=== PATIENT | male | born 1940 | race Caucasian/White ===

== ENCOUNTER 2017-09-28 04:01 | Inpatient (IN) | payer MEDICARE, MEDICAID ==
[~2017-09-28] VITALS: Ht 167.6 cm; Wt 50.0 kg
[~2017-09-28 04:01] MED LIST: ADVAIR DISKU; ATOR-2 PO; CARCD120C PO; CARV6.253 PO; CIPR-173 PO; FLUO20CA39 PO; FURO-150 PO; PANT40TA4 PO; VENTOLIN HFA AER
[2017-09-28] MEDS ORDERED: albuterol 2.5 MG/3 ML nebule CONTNEB PRN (04:15)
[2017-09-28] MEDS ORDERED: methylPREDNISolone sod succ 125mg/2ml vial IV ONE (04:15)
[2017-09-28 04:59] LABS: INR 1.2 INR; PARTIAL THROMBOPLASTIN TIME 31 SECONDS (22-32)
[2017-09-28 05:26] LABS: ABG HCO3 30.3 mmol/L (22.0-26.0); ABG OXYGEN SATURATION 73.1 % (95-98); ABG PCO2 (T) 47.8 mmHg (35.0-48.0); ABG PH (T) 7.417 (7.350-7.450); ABG PO2 (T) 38.8 mmHg (83-108); ALLEN'S TEST Positive; FLOW 4 L/min; FMetHb 0.1 % (0.3-1.12); FO2Hb 72.3 % (94-100); PATIENT TEMPERATURE 36.5; TOTAL HEMOGLOBIN 9.5 G/dl (14.0-18.0)
[2017-09-28 05:43] LABS: ALANINE AMINOTRANSFERASE 22 U/L (12-78); ALBUMIN/GLOBULIN RATIO 0.7 (1.1-1.5); ALKALINE PHOSPHATASE 138 IU/L (46-116); ANION GAP 9 (8-16); ASPARTATE AMINO TRANSFERASE 30 U/L (10-37); BILIRUBIN,TOTAL 0.7 MG/DL (0.1-1.0); BLOOD UREA NITROGEN 14 MG/DL (7-18); BUN/CREATININE RATIO 12.3 (5.4-32.0); CALCIUM 8.7 MG/DL (8.5-10.1); CHLORIDE 105 MMOL/L (99-107); CREATININE 1.14 MG/DL (0.60-1.10); GLUCOSE 120 MG/DL (70-104); MAGNESIUM 1.8 MG/DL (1.5-2.4); PHOSPHORUS 3.6 MG/DL (2.3-4.5); POTASSIUM 4.4 MMOL/L (3.5-5.1); SODIUM 143 MMOL/L (135-145); TOTAL CARBON DIOXIDE 29.4 MMOL/L (24-32); TOTAL PROTEIN 7.6 G/DL (6.4-8.2); eGFR 62 ML/MIN
[2017-09-28] MEDS ORDERED: APIX5TAB3 PO (05:47)
[2017-09-28 05:48] LABS: BASOPHILS % (AUTO) 0.4 % (0-1); EOSINOPHILS # (AUTO) 0.2 X10'3 (0-0.9); EOSINOPHILS % (AUTO) 2.4 % (0-6); HEMATOCRIT 27.1 % (42.0-52.0); HEMOGLOBIN 8.9 g/dl (14.0-17.9); MEAN CORPUSCULAR HEMOGLOBIN 28.3 PG (27.0-31.0); MEAN CORPUSCULAR HGB CONC 32.8 % (33.0-36.5); MEAN CORPUSCULAR VOLUME 86.1 FL (78-98); MEAN PLATELET VOLUME 11.5 FL (7.4-10.4); MONOCYTES # (AUTO) 0.4 X10'3 (0-0.9); NEUTROPHILS # (AUTO) 6.1 X10'3 (1.8-7.7); NEUTROPHILS % (AUTO) 79.2 % (42-75); PLATELET COUNT 181 X10'3 (140-440); RED BLOOD COUNT 3.14 X10'6 (4.70-6.10); WHITE BLOOD COUNT 7.6 X10'3 (4.5-11.0)
[2017-09-28 07:04] LABS: LARGE PLATELETS FEW; PLATELET ESTIMATE NORMAL
[2017-09-28 07:05] LABS: ANISOCYTOSIS 3+; MICROCYTOSIS 1+; POIKILOCYTOSIS FEW; POLYCHROMASIA FEW; TARGET CELLS FEW
[2017-09-28] MEDS ORDERED: furosemide 10 MG/1 ML 10ml inj IV ONE (08:10)
[2017-09-28] MEDS ORDERED: diltiazem 5mg/ml 5ml inj. IV ONE (08:10)
[2017-09-28] MEDS ORDERED: ondansetron/PF 4mg/2ml inj IV PRN (08:20)
[2017-09-28] MEDS ORDERED: morphine 4 MG/ML inj SYRINge IV PRN ×2 (08:20)
[2017-09-28] MEDS ORDERED: mag hydrox/Alum hydrox/simeth 30ml oral suspension PO PRN (08:20)
[2017-09-28] MEDS ORDERED: potassium Cl 40MEQ/NS 500ml 500 ML IV PRN ×2 (08:20)
[2017-09-28] MEDS ORDERED: magnesium hydroxide 30ml (MOM) UD suspension PO PRN (08:20)
[2017-09-28] MEDS ORDERED: bisacodyl 10mg suppository rectal RC PRN (08:20)
[2017-09-28] MEDS ORDERED: magnesium Cl slow-release 64mg tablet PO PRN (08:20)
[2017-09-28] MEDS ORDERED: acetaminophen 325mg tablet PO PRN (08:20)
[2017-09-28] MEDS ORDERED: magnesium 2GM in 50ml NS 50 ML IV PRN (08:20)
[2017-09-28] MEDS ORDERED: magnesium 4gm in 100ml NS 100 ML IV PRN (08:20)
[2017-09-28] MEDS ORDERED: potassium Cl 20 mEq SR tablet PO PRN ×2 (08:20)
[2017-09-28] MEDS: levoFLOXACIN-Levaquin 500mg/D5 100 ML IV SCH (08:59)
[2017-09-28] MEDS: diltiazem-D5W 125mg/125ml 125 ML IV PRN (09:13)
[2017-09-28] MEDS: ipratropium/albuterol 3ml nebule NEB SCH ×4 (11:36→23:04)
[2017-09-28 12:05] LABS: ABG BASE EXCESS 6.9 mmol/L (-2.0-3.0); ABG HCO3 31.6 mmol/L (22.0-26.0); ABG OXYGEN SATURATION 90.2 % (95-98); ABG PCO2 (T) 45.7 mmHg (35.0-48.0); ABG PH (T) 7.457 (7.350-7.450); ABG PO2 (T) 60.5 mmHg (83-108); ALLEN'S TEST Positive; FCOHb 0.9 % (0.5-1.5); FO2Hb 89.4 % (94-100); MINUTE VOLUME 17 L/min; RESPIRATORY RATE 18 b/min; RESPIRATORY RATE (OBSERVED) 20 b/min; TIDAL VOLUME 715 mL; TOTAL HEMOGLOBIN 9.8 G/dl (14.0-18.0)
[2017-09-28] MEDS: methylPREDNISolone sod succ 125mg/2ml vial IV SCH ×2 (16:11→20:04)
[2017-09-28 17:00] VITALS: BP 120/51
[2017-09-28 18:00] VITALS: BP 136/80
[2017-09-28 20:00] VITALS: BP 117/61
[2017-09-28] MEDS: atorvastatin 20mg tablet PO SCH (20:05)
[2017-09-28] MEDS: furosemide 20 MG/2 ML vial IV SCH (20:05)
[2017-09-28] MEDS: lactobacillus rhamnosus 10,000 MMU CELLS/CAPSULE PO SCH (20:06)
[2017-09-28] MEDS: docusate sod 100mg capsule PO SCH (20:07)
[2017-09-28] MEDS: carvedilol 6.25mg tablet PO SCH (20:07)
[2017-09-28] MEDS: apixaban 5mg tablet PO SCH (20:07)
[2017-09-28] MEDS ORDERED: ALPRAZolam 0.25mg tablet PO PRN (20:40)
[2017-09-28] MEDS ORDERED: diltiazem-D5W 125mg/125ml 125 ML IV ONE (21:56)
[2017-09-28 22:00] VITALS: BP 111/62
[2017-09-29] VITALS (9 sets, daily range): BP systolic 97–128; BP diastolic 55–100
[2017-09-29] MEDS: methylPREDNISolone sod succ 125mg/2ml vial IV SCH ×3 (02:22→16:10)
[2017-09-29] MEDS: ipratropium/albuterol 3ml nebule NEB SCH ×6 (03:00→23:00)
[2017-09-29 05:14] LABS: BASOPHILS % (AUTO) 0.3 % (0-1); EOSINOPHILS # (AUTO) 0.1 X10'3 (0-0.9); EOSINOPHILS % (AUTO) 0.8 % (0-6); HEMOGLOBIN 8.9 g/dl (14.0-17.9); LYMPHOCYTES # (AUTO) 0.7 X10'3 (1.1-4.8); LYMPHOCYTES % (AUTO) 8.2 % (21-51); MEAN CORPUSCULAR HEMOGLOBIN 28.5 PG (27.0-31.0); MEAN CORPUSCULAR HGB CONC 32.9 % (33.0-36.5); MEAN CORPUSCULAR VOLUME 86.8 FL (78-98); MEAN PLATELET VOLUME 11.2 FL (7.4-10.4); MONOCYTES # (AUTO) 0.1 X10'3 (0-0.9); MONOCYTES % (AUTO) 1.1 % (2-12); NEUTROPHILS # (AUTO) 7.4 X10'3 (1.8-7.7); NEUTROPHILS % (AUTO) 89.6 % (42-75); PLATELET COUNT 167 X10'3 (140-440); RED BLOOD COUNT 3.11 X10'6 (4.70-6.10); RED CELL DISTRIBUTION WIDTH 21.5 % (11.5-14.5); WHITE BLOOD COUNT 8.2 X10'3 (4.5-11.0)
[2017-09-29 05:27] LABS: ALBUMIN 2.8 G/DL (3.4-5.0); ANION GAP 5 (8-16); BLOOD UREA NITROGEN 19 MG/DL (7-18); BUN/CREATININE RATIO 18.1 (5.4-32.0); CHLORIDE 98 MMOL/L (99-107); CREATININE 1.05 MG/DL (0.60-1.10); GLUCOSE 146 MG/DL (70-104); MAGNESIUM 1.9 MG/DL (1.5-2.4); POTASSIUM 3.8 MMOL/L (3.5-5.1); SODIUM 137 MMOL/L (135-145); TOTAL CARBON DIOXIDE 34.1 MMOL/L (24-32); eGFR 69 ML/MIN
[2017-09-29] MEDS: pantoprazole 40mg Tablet.DR PO SCH (07:37)
[2017-09-29] MEDS: FLUoxetine 20mg capsule PO SCH (07:37)
[2017-09-29] MEDS: apixaban 5mg tablet PO SCH ×2 (07:38→20:03)
[2017-09-29] MEDS: lactobacillus rhamnosus 10,000 MMU CELLS/CAPSULE PO SCH ×2 (07:38→20:02)
[2017-09-29] MEDS: furosemide 20 MG/2 ML vial IV SCH ×2 (07:39→20:03)
[2017-09-29] MEDS: docusate sod 100mg capsule PO SCH ×2 (07:39→20:02)
[2017-09-29] MEDS: carvedilol 6.25mg tablet PO SCH ×2 (07:39→20:03)
[2017-09-29] MEDS: levoFLOXACIN-Levaquin 500mg/D5 100 ML IV SCH (07:40)
[2017-09-29] MEDS: K and/or MAG REPLACEMENT MC SCH (08:00)
[2017-09-29] MEDS: diltiazem-D5W 125mg/125ml 125 ML IV PRN ×2 (09:53→12:17)
[2017-09-29] MEDS: diltiazem CD 120mg capsule (once-daily) PO SCH (13:55)
[2017-09-29] MEDS: emollient combination-Eucerin 250 ML LOTION TP SCH (20:00)
[2017-09-29] MEDS: atorvastatin 20mg tablet PO SCH (20:03)
[2017-09-30] MEDS: methylPREDNISolone sod succ 125mg/2ml vial IV SCH ×2 (00:04→08:00)
[2017-09-30] MEDS: ipratropium/albuterol 3ml nebule NEB SCH ×2 (02:55→11:31)
[2017-09-30 03:00] VITALS: BP 98/69
[2017-09-30 04:24] LABS: BASOPHILS # (AUTO) 0.1 X10'3 (0-0.2); BASOPHILS % (AUTO) 0.4 % (0-1); EOSINOPHILS % (AUTO) 0 % (0-6); HEMATOCRIT 28.1 % (42.0-52.0); HEMOGLOBIN 9.3 g/dl (14.0-17.9); LYMPHOCYTES # (AUTO) 0.7 X10'3 (1.1-4.8); LYMPHOCYTES % (AUTO) 4.3 % (21-51); MEAN CORPUSCULAR HEMOGLOBIN 28.3 PG (27.0-31.0); MEAN CORPUSCULAR HGB CONC 32.9 % (33.0-36.5); MEAN CORPUSCULAR VOLUME 85.9 FL (78-98); MEAN PLATELET VOLUME 10.9 FL (7.4-10.4); MONOCYTES # (AUTO) 0.3 X10'3 (0-0.9); MONOCYTES % (AUTO) 2.1 % (2-12); NEUTROPHILS # (AUTO) 14.2 X10'3 (1.8-7.7); NEUTROPHILS % (AUTO) 93.2 % (42-75); PLATELET COUNT 192 X10'3 (140-440); RED BLOOD COUNT 3.27 X10'6 (4.70-6.10); RED CELL DISTRIBUTION WIDTH 21.1 % (11.5-14.5); WHITE BLOOD COUNT 15.2 X10'3 (4.5-11.0)
[2017-09-30 05:06] LABS: ALBUMIN 2.7 G/DL (3.4-5.0); ANION GAP 7 (8-16); BLOOD UREA NITROGEN 27 MG/DL (7-18); BUN/CREATININE RATIO 26.7 (5.4-32.0); CALCIUM 8.9 MG/DL (8.5-10.1); CHLORIDE 95 MMOL/L (99-107); CREATININE 1.01 MG/DL (0.60-1.10); GLUCOSE 143 MG/DL (70-104); MAGNESIUM 1.9 MG/DL (1.5-2.4); POTASSIUM 3.3 MMOL/L (3.5-5.1); SODIUM 135 MMOL/L (135-145); eGFR 72 ML/MIN
[2017-09-30 06:00] VITALS: BP 109/69
[2017-09-30 08:00] VITALS: BP 92/54
[2017-09-30] MEDS: levoFLOXACIN-Levaquin 500mg/D5 100 ML IV SCH (08:00)
[2017-09-30] MEDS: lactobacillus rhamnosus 10,000 MMU CELLS/CAPSULE PO SCH (08:00)
[2017-09-30] MEDS: apixaban 5mg tablet PO SCH (08:00)
[2017-09-30] MEDS: furosemide 20 MG/2 ML vial IV SCH (08:00)
[2017-09-30] MEDS: emollient combination-Eucerin 250 ML LOTION TP SCH (08:00)
[2017-09-30] MEDS: FLUoxetine 20mg capsule PO SCH (08:00)
[2017-09-30] MEDS: docusate sod 100mg capsule PO SCH (08:00)
[2017-09-30] MEDS: diltiazem CD 120mg capsule (once-daily) PO SCH (08:00)
[2017-09-30] MEDS: carvedilol 6.25mg tablet PO SCH (08:00)
[2017-09-30] MEDS: pantoprazole 40mg Tablet.DR PO SCH (09:41)
[2017-09-30] MEDS: K and/or MAG REPLACEMENT MC SCH (11:29)
== END 2017-09-30 12:04 | disposition left against medical advice (07) | DRG 291 ==
LOC: ER 04:02 → ED HOLD 08:20 → PCU 3S 16:25
PROVIDERS: ADMIT Internal Medicine; ATTEND Internal Medicine
PROC: 5A09357 Assistance with Respiratory Ventilation, Less than 24 Consecutive Hours, Continuous Positive Airway Pressure (ICD-10-PCS; principal; 2017-09-28)
DX: I11.0 Hypertensive heart disease with heart failure (principal); J96.21 Acute and chronic respiratory failure with hypoxia; J84.9 Interstitial pulmonary disease, unspecified; J44.0 Chronic obstructive pulmonary disease with (acute) lower respiratory infection; J44.1 Chronic obstructive pulmonary disease with (acute) exacerbation; Z68.1 Body mass index [BMI] 19.9 or less, adult; I50.23 Acute on chronic systolic (congestive) heart failure; I48.91 Unspecified atrial fibrillation; J20.9 Acute bronchitis, unspecified; I25.10 Atherosclerotic heart disease of native coronary artery without angina pectoris; R54 Age-related physical debility; Z53.21 Procedure and treatment not carried out due to patient leaving prior to being seen by health care provider; Z88.0 Allergy status to penicillin; Z95.1 Presence of aortocoronary bypass graft; Z99.81 Dependence on supplemental oxygen; Z79.899 Other long term (current) drug therapy; Z79.01 Long term (current) use of anticoagulants; Z87.891 Personal history of nicotine dependence
CPT/HCPCS: 36415; 36600; 71045; 80048; 80053; 82803; 83605; 83735; 83880; 84100; 84484; 85018; 85025; 85610; 85730; 87040; 87070; 93005; 93306; 94640; 94660; 94760; 96374; 99285; A6212; J1940; J1956; J2930; J3490; J7030

== ENCOUNTER 2017-10-30 22:18 | Emergency (ER) | payer MEDICARE, OTHER ==
[~2017-10-30] VITALS: Ht 182.9 cm; Wt 64.0 kg
[~2017-10-30 22:18] MED LIST changes: +APIX5TAB3 PO; -CIPR-173 PO
[2017-10-31] MEDS ORDERED: ELIQUIS TAB 5MG (00:48)
[2017-10-31] MEDS ORDERED: ZOLPIDEM 5 MG (00:48)
[2017-10-31] MEDS ORDERED: FLUTICASONE SPR 50MCG (00:48)
[2017-10-31] MEDS ORDERED: CARTIA XT (00:48)
[2017-10-31] MEDS ORDERED: CLONAZEPAM TAB 1MG (00:48)
[2017-10-31] MEDS ORDERED: FUROSEMIDE TAB 20MG (00:48)
[2017-10-31] MEDS ORDERED: TAMSULOSIN CAP 0.4MG (00:48)
[2017-10-31] MEDS ORDERED: CARVEDILOL 6.25 MG (00:48)
[2017-10-31] MEDS ORDERED: FLUOXETINE CAP 20MG (00:48)
[2017-10-31] MEDS ORDERED: PANTOPRAZOLE TAB 40MG (00:50)
[2017-10-31] MEDS ORDERED: ATORVASTATIN 80 MG (00:50)
[2017-10-31] MEDS ORDERED: furosemide 40mg/4ml inj IV ONE (00:50)
[2017-10-31 01:44] LABS: BASOPHILS % (AUTO) 0.6 % (0-1); EOSINOPHILS # (AUTO) 0.2 X10'3 (0-0.9); EOSINOPHILS % (AUTO) 2.8 % (0-6); HEMATOCRIT 28.7 % (42.0-52.0); HEMOGLOBIN 9.3 g/dl (14.0-17.9); LYMPHOCYTES # (AUTO) 1.3 X10'3 (1.1-4.8); LYMPHOCYTES % (AUTO) 23.5 % (21-51); MEAN CORPUSCULAR HEMOGLOBIN 28.2 PG (27.0-31.0); MEAN CORPUSCULAR HGB CONC 32.4 % (33.0-36.5); MEAN CORPUSCULAR VOLUME 87.2 FL (78-98); MEAN PLATELET VOLUME 10.8 FL (7.4-10.4); MONOCYTES # (AUTO) 0.5 X10'3 (0-0.9); MONOCYTES % (AUTO) 8.3 % (2-12); NEUTROPHILS # (AUTO) 3.6 X10'3 (1.8-7.7); NEUTROPHILS % (AUTO) 64.8 % (42-75); PLATELET COUNT 165 X10'3 (140-440); RED BLOOD COUNT 3.29 X10'6 (4.70-6.10); RED CELL DISTRIBUTION WIDTH 19.1 % (11.5-14.5); WHITE BLOOD COUNT 5.6 X10'3 (4.5-11.0)
[2017-10-31 01:50] LABS: INR 1.1 INR; PARTIAL THROMBOPLASTIN TIME 31 SECONDS (22-32); PROTHROMBIN TIME 11.6 SECONDS (9.0-12.0)
[2017-10-31 02:02] LABS: ALANINE AMINOTRANSFERASE 35 U/L (12-78); ALBUMIN/GLOBULIN RATIO 0.7 (1.1-1.5); ALKALINE PHOSPHATASE 129 IU/L (46-116); ANION GAP 7 (8-16); ASPARTATE AMINO TRANSFERASE 47 U/L (10-37); BILIRUBIN,TOTAL 0.7 MG/DL (0.1-1.0); BLOOD UREA NITROGEN 16 MG/DL (7-18); CALCIUM 9.1 MG/DL (8.5-10.1); CHLORIDE 105 MMOL/L (99-107); GLUCOSE 93 MG/DL (70-104); MAGNESIUM 1.9 MG/DL (1.5-2.4); POTASSIUM 3.4 MMOL/L (3.5-5.1); SODIUM 145 MMOL/L (135-145); TOTAL CARBON DIOXIDE 33.2 MMOL/L (24-32); TOTAL PROTEIN 7.1 G/DL (6.4-8.2); eGFR 73 ML/MIN
[2017-10-31] MEDS ORDERED: FURO-150 PO (02:23)
[2017-10-31 02:58] VITALS: BP 120/70
== END 2017-10-31 03:00 | disposition home or self-care (01) ==
LOC: ER 22:18
DX: I50.23 Acute on chronic systolic (congestive) heart failure (principal); I11.0 Hypertensive heart disease with heart failure; I48.91 Unspecified atrial fibrillation; I25.10 Atherosclerotic heart disease of native coronary artery without angina pectoris; J44.9 Chronic obstructive pulmonary disease, unspecified; Z95.1 Presence of aortocoronary bypass graft; Z99.81 Dependence on supplemental oxygen; Z88.0 Allergy status to penicillin; Z79.899 Other long term (current) drug therapy
CPT/HCPCS: 36415; 71045; 80053; 83735; 83880; 85025; 85610; 85730; 93005; 96374; 99285; J1940

== ENCOUNTER 2019-03-01 04:24 | Inpatient (IN) | payer MEDICARE, MEDICAID ==
[~2019-03-01] VITALS: Ht 182.9 cm; Wt 75.0 kg
[~2019-03-01 04:24] MED LIST changes: +ATORVASTATIN 80 MG; +CARTIA XT; +CARVEDILOL 6.25 MG; +CLONAZEPAM TAB 1MG; +ELIQUIS TAB 5MG; +FLUOXETINE CAP 20MG; +FLUTICASONE SPR 50MCG; +FUROSEMIDE TAB 20MG; +PANTOPRAZOLE TAB 40MG; +TAMSULOSIN CAP 0.4MG; +ZOLPIDEM 5 MG
[2019-03-01 04:57] LABS: BASOPHILS # (AUTO) 0.1 X10'3 (0-0.2); BASOPHILS % (AUTO) 0.6 % (0-1); EOSINOPHILS # (AUTO) 0.1 X10'3 (0-0.9); EOSINOPHILS % (AUTO) 1.5 % (0-6); HEMATOCRIT 29.4 % (42.0-52.0); HEMOGLOBIN 9.7 g/dl (14.0-17.9); LYMPHOCYTES # (AUTO) 0.7 X10'3 (1.1-4.8); LYMPHOCYTES % (AUTO) 7.5 % (21-51); MEAN CORPUSCULAR HEMOGLOBIN 30.1 PG (27.0-31.0); MEAN CORPUSCULAR VOLUME 91.4 FL (78-98); MEAN PLATELET VOLUME 9.5 FL (7.4-10.4); MONOCYTES # (AUTO) 0.5 X10'3 (0-0.9); NEUTROPHILS # (AUTO) 8.3 X10'3 (1.8-7.7); NEUTROPHILS % (AUTO) 85.4 % (42-75); PLATELET COUNT 193 X10'3 (140-440); RED BLOOD COUNT 3.21 X10'6 (4.70-6.10); RED CELL DISTRIBUTION WIDTH 16.1 % (11.5-14.5); WHITE BLOOD COUNT 9.8 X10'3 (4.5-11.0)
[2019-03-01] MEDS ORDERED: albuterol 2.5 MG/3 ML nebule NEB ONE (05:05)
[2019-03-01 05:06] LABS: ALANINE AMINOTRANSFERASE 15 U/L (12-78); ALBUMIN 2.9 G/DL (3.4-5.0); ALBUMIN/GLOBULIN RATIO 0.7 (1.1-1.5); ALKALINE PHOSPHATASE 118 IU/L (46-116); ANION GAP 5 (8-16); ASPARTATE AMINO TRANSFERASE 22 U/L (10-37); BILIRUBIN,TOTAL 0.6 MG/DL (0.1-1.0); BLOOD UREA NITROGEN 15 MG/DL (7-18); CALCIUM 8.1 MG/DL (8.5-10.1); CHLORIDE 102 MMOL/L (99-107); CREATININE 1.36 MG/DL (0.60-1.10); GLUCOSE 121 MG/DL (70-104); POTASSIUM 3.2 MMOL/L (3.5-5.1); SODIUM 142 MMOL/L (135-145); TOTAL CARBON DIOXIDE 34.7 MMOL/L (24-32); TOTAL PROTEIN 6.9 G/DL (6.4-8.2); eGFR 51 ML/MIN
[2019-03-01] MEDS ORDERED: levoFLOXACIN-Levaquin 750MG/D5 150 ML IV STA (06:43)
[2019-03-01] MEDS ORDERED: furosemide 10 MG/1 ML 10ml inj IV ONE (06:45)
[2019-03-01] MEDS ORDERED: potassium chloride 10mEq CAPSULE.SA PO SCH (07:05)
[2019-03-01] MEDS ORDERED: potassium Cl 20 mEq SR tablet PO ONE (07:05)
--- NOTE | 2019-03-01 07:31 | NUR ---
RT paged for new bipap order.
[2019-03-01 08:46] LABS: ABG BASE EXCESS 6.2 mmol/L (-2.0-3.0); ABG HCO3 31.7 mmol/L (22.0-26.0); ABG PH (T) 7.412 (7.350-7.450); ABG PO2 (T) 80.2 mmHg (83-108); ALLEN'S TEST Positive; FCOHb 0.7 % (0.5-1.5); FMetHb 0.1 % (0.3-1.12); FO2Hb 94.2 % (94-100); MINUTE VOLUME 21 L/min; RESPIRATORY RATE (OBSERVED) 32 b/min; TIDAL VOLUME 683 mL; TOTAL HEMOGLOBIN 10.6 G/dl (14.0-17.9)
[2019-03-01] MEDS ORDERED: acetaminophen 325mg tablet PO PRN (09:25)
[2019-03-01] MEDS ORDERED: mag hydrox/Alum hydrox/simeth 30ml oral suspension PO PRN (09:25)
[2019-03-01] MEDS ORDERED: magnesium hydroxide 30ml (MOM) UD suspension PO PRN (09:25)
[2019-03-01] MEDS ORDERED: ondansetron/PF 4mg/2ml inj IV PRN (09:25)
[2019-03-01 11:00] VITALS: BP 104/63
--- NOTE | 2019-03-01 11:00 | NUR ---
Received report from Nicole CARDENAS from the ED. Patient arrived on PCU and was able to transfer by himself. Bedside monitoring was set up, vitals signs obtained, skin check performed and physical assessment done by RN. Patient is on biPap continuous at this time due to decreased saturation levels. Patient is alert and oriented. Will continue to monitor.
[2019-03-01] MEDS ORDERED: FURO20TA4 PO (12:26)
[2019-03-01] MEDS ORDERED: DILT120C51 PO (12:26)
--- NOTE | 2019-03-01 12:28 | NUR ---
Patient has duct tape to abdomen that he refuses to allow RN to remove. Will continue to monitor
[2019-03-01] MEDS ORDERED: FLUT16SP26 NAS (12:30)
[2019-03-01] MEDS ORDERED: CLON0.5T12 PO (12:30)
[2019-03-01] MEDS ORDERED: AMLO10TA13 PO (12:31)
[2019-03-01] MEDS ORDERED: FLO0.4C PO (14:39)
[2019-03-01] MEDS ORDERED: ALBU18HF2 INH (14:39)
[2019-03-01] MEDS ORDERED: ADV50100 INH (14:39)
[2019-03-01] MEDS ORDERED: CARV6.253 PO (14:40)
[2019-03-01] MEDS ORDERED: PANT40TA4 PO (14:40)
[2019-03-01 15:00] VITALS: BP 118/88
[2019-03-01] MEDS ORDERED: non-formulary drug (Amlodipine Besylate 1 TAB) PO SCH (15:10)
[2019-03-01] MEDS ORDERED: clonazePAM 0.5mg tablet PO PRN (15:10)
[2019-03-01] MEDS ORDERED: non-formulary drug (Diltiazem HCl (Cartia Xt) 1 CAP) PO SCH (15:10)
--- NOTE | 2019-03-01 18:15 | NUR ---
Patient in room PCU 3012. I have received report from Amie CARDENAS and had the opportunity to ask questions and assume patient care.
--- NOTE | 2019-03-01 18:29 | NUR ---
Patient has been educated regarding the risks of skin breakdown due to the duct tape he has on his abdomen. Patient refuses to remove the duct tape and stated " you don't touch it" and believes that this is an appropriate way to treat a hernia. Will continue to monitor.
--- NOTE | 2019-03-01 18:33 | NUR ---
Problems reprioritized. Patient report given, questions answered & plan of care reviewed with Linh CARDENAS. Patient stable at transfer of care.
--- NOTE | 2019-03-01 18:45 | NUR ---
Paged Dr. Sanches PAGER ID: [phone] MESSAGE: Sarah [address] [phone]. Harshal Fe #[id number], pt. is having a headache, would like Tylenol but I only have it order for fever. Can I get order for pain? Thanks
[2019-03-01 19:00] VITALS: BP 105/72
[2019-03-01] MEDS ORDERED: non-formulary drug (Fluticasone/Salmeterol (Advair 100-50 Diskus) 1 PUFF) INH SCH (20:00)
[2019-03-01] MEDS ORDERED: heparin, porcine 5000 units/ml vial SQ SCH (20:00)
[2019-03-01] MEDS: acetaminophen 325mg tablet PO PRN (20:14)
[2019-03-01] MEDS: furosemide 40mg/4ml inj IV SCH (20:15)
[2019-03-01] MEDS: apixaban 5mg tablet PO SCH (20:15)
[2019-03-01] MEDS: carvedilol 6.25mg tablet PO SCH (20:15)
[2019-03-01] MEDS: atorvastatin 20mg tablet PO SCH (20:16)
[2019-03-01] MEDS: albuterol 2.5 MG/3 ML nebule NEB SCH (20:23)
[2019-03-01] MEDS: budesonide 0.5mg/2ml UD nebule IH SCH (20:23)
[2019-03-01] MEDS ORDERED: non-formulary drug (Atorvastatin Calcium 1 TAB) PO SCH (21:00)
[2019-03-01 22:49] VITALS: BP 117/68
--- NOTE | 2019-03-01 23:32 | NUR ---
Found patient's dentures in his bed. Placed them in a denture container with his informational radiation control specialist it and placed in on his tray. Noticed his bed and his sweatpants were saturated with urine. When I mentioned cleaning him up he got upset and refused a bed change. He also refused to get out of his sweats. Explained issues that can arise from laying in his urine but he still refused. Says he will get up in the morning, shower and get a full bed change.
[2019-03-02 03:00] VITALS: BP 102/53
[2019-03-02] MEDS: albuterol 2.5 MG/3 ML nebule NEB SCH ×4 (03:00→20:58)
[2019-03-02 05:23] LABS: BASOPHILS # (AUTO) 0.1 X10'3 (0-0.2); BASOPHILS % (AUTO) 0.7 % (0-1); EOSINOPHILS # (AUTO) 0.1 X10'3 (0-0.9); EOSINOPHILS % (AUTO) 0.9 % (0-6); HEMOGLOBIN 9.5 g/dl (14.0-17.9); LYMPHOCYTES % (AUTO) 12.3 % (21-51); MEAN CORPUSCULAR HEMOGLOBIN 29.9 PG (27.0-31.0); MEAN CORPUSCULAR HGB CONC 32.8 g/dL (33.0-36.5); MEAN CORPUSCULAR VOLUME 91.4 FL (78-98); MEAN PLATELET VOLUME 9.8 FL (7.4-10.4); MONOCYTES # (AUTO) 0.6 X10'3 (0-0.9); MONOCYTES % (AUTO) 7.2 % (2-12); NEUTROPHILS # (AUTO) 6.5 X10'3 (1.8-7.7); NEUTROPHILS % (AUTO) 78.9 % (42-75); PLATELET COUNT 195 X10'3 (140-440); RED BLOOD COUNT 3.18 X10'6 (4.70-6.10); RED CELL DISTRIBUTION WIDTH 16.2 % (11.5-14.5); WHITE BLOOD COUNT 8.2 X10'3 (4.5-11.0)
[2019-03-02 05:31] LABS: ALBUMIN 2.8 G/DL (3.4-5.0); ANION GAP 6 (8-16); BLOOD UREA NITROGEN 17 MG/DL (7-18); BUN/CREATININE RATIO 14.5 (5.4-32.0); CALCIUM 9.3 MG/DL (8.5-10.1); CHLORIDE 102 MMOL/L (99-107); CREATININE 1.17 MG/DL (0.60-1.10); GLUCOSE 108 MG/DL (70-104); POTASSIUM 3.8 MMOL/L (3.5-5.1); SODIUM 140 MMOL/L (135-145); TOTAL CARBON DIOXIDE 31.8 MMOL/L (24-32); eGFR 60 ML/MIN
--- NOTE | 2019-03-02 06:17 | NUR ---
Problems reprioritized. Patient report given, questions answered & plan of care reviewed with Amie CARDENAS and Hanny RN.
[2019-03-02] MEDS: acetaminophen 325mg tablet PO PRN (06:47)
[2019-03-02 06:52] VITALS: BP 108/82
--- NOTE | 2019-03-02 07:01 | NUR ---
Patient in room PCU 3012. I have received report from Sarah CARDENAS, and had the opportunity to ask questions and assume patient care.
[2019-03-02] MEDS ORDERED: levoFLOXACIN-Levaquin 500mg/D5 100 ML IV SCH (08:00)
[2019-03-02] MEDS: budesonide 0.5mg/2ml UD nebule IH SCH ×2 (08:02→20:58)
[2019-03-02] MEDS: apixaban 5mg tablet PO SCH ×2 (08:11→20:00)
[2019-03-02] MEDS: pantoprazole 40mg Tablet.DR PO SCH (08:11)
[2019-03-02] MEDS: diltiazem CD 120mg capsule (once-daily) PO SCH (08:11)
[2019-03-02] MEDS: carvedilol 6.25mg tablet PO SCH ×2 (08:11→19:59)
[2019-03-02] MEDS: tamsulosin 0.4mg capsule PO SCH (08:11)
[2019-03-02] MEDS: amLODIPine 5mg tablet PO SCH (08:12)
[2019-03-02] MEDS: FLUoxetine 20mg capsule PO SCH (08:12)
[2019-03-02] MEDS: furosemide 40mg/4ml inj IV SCH ×2 (08:15→19:58)
[2019-03-02] MEDS: methylPREDNISolone sod succ 125mg/2ml vial IV SCH ×2 (10:40→19:58)
[2019-03-02 11:00] VITALS: BP 124/67
[2019-03-02 15:00] VITALS: BP 115/73
--- NOTE | 2019-03-02 18:15 | NUR ---
Patient in room PCU 3012. I have received report from Amie CARDENAS and had the opportunity to ask questions and assume patient care.
--- NOTE | 2019-03-02 18:31 | NUR ---
Problems reprioritized. Patient report given, questions answered & plan of care reviewed with Linh CARDENAS.
[2019-03-02 19:00] VITALS: BP 111/61
[2019-03-02] MEDS: lactobacillus rhamnosus 10,000 MMU CELLS/CAPSULE PO SCH (19:59)
[2019-03-02] MEDS: atorvastatin 20mg tablet PO SCH (20:01)
[2019-03-02 23:00] VITALS: BP 112/69
[2019-03-03 03:00] VITALS: BP 102/50
[2019-03-03] MEDS: albuterol 2.5 MG/3 ML nebule NEB SCH ×4 (03:28→20:48)
[2019-03-03 06:00] VITALS: BP 111/88
--- NOTE | 2019-03-03 06:00 | NUR ---
Patient in room PCU 3012. I have received report from Sarah CARDENAS and had the opportunity to ask questions and assume patient care.
[2019-03-03 06:02] LABS: BASOPHILS % (AUTO) 0.1 % (0-1); EOSINOPHILS % (AUTO) 0 % (0-6); HEMATOCRIT 29.5 % (42.0-52.0); HEMOGLOBIN 9.9 g/dl (14.0-17.9); LYMPHOCYTES # (AUTO) 0.5 X10'3 (1.1-4.8); LYMPHOCYTES % (AUTO) 6.2 % (21-51); MEAN CORPUSCULAR HGB CONC 33.5 g/dL (33.0-36.5); MEAN CORPUSCULAR VOLUME 89.4 FL (78-98); MEAN PLATELET VOLUME 9.6 FL (7.4-10.4); MONOCYTES # (AUTO) 0.1 X10'3 (0-0.9); MONOCYTES % (AUTO) 1.7 % (2-12); PLATELET COUNT 194 X10'3 (140-440); WHITE BLOOD COUNT 8.7 X10'3 (4.5-11.0)
--- NOTE | 2019-03-03 06:25 | NUR ---
Problems reprioritized. Patient report given, questions answered & plan of care reviewed with Ryan CARDENAS.
[2019-03-03 06:53] LABS: ALBUMIN 2.8 G/DL (3.4-5.0); ANION GAP 8 (8-16); BLOOD UREA NITROGEN 29 MG/DL (7-18); BUN/CREATININE RATIO 19.6 (5.4-32.0); CALCIUM 8.9 MG/DL (8.5-10.1); CHLORIDE 98 MMOL/L (99-107); CREATININE 1.48 MG/DL (0.60-1.10); GLUCOSE 158 MG/DL (70-104); POTASSIUM 3.4 MMOL/L (3.5-5.1); SODIUM 138 MMOL/L (135-145); TOTAL CARBON DIOXIDE 31.7 MMOL/L (24-32); eGFR 46 ML/MIN
[2019-03-03] MEDS: apixaban 5mg tablet PO SCH ×2 (07:49→19:52)
[2019-03-03] MEDS: levoFLOXACIN-Levaquin 250mg/D5 50 ML IV SCH (07:49)
[2019-03-03] MEDS: furosemide 40mg/4ml inj IV SCH (07:49)
[2019-03-03] MEDS: methylPREDNISolone sod succ 125mg/2ml vial IV SCH ×2 (07:49→19:52)
[2019-03-03] MEDS: pantoprazole 40mg Tablet.DR PO SCH (07:49)
[2019-03-03] MEDS: lactobacillus rhamnosus 10,000 MMU CELLS/CAPSULE PO SCH ×2 (07:50→19:52)
[2019-03-03] MEDS: carvedilol 6.25mg tablet PO SCH ×2 (07:50→19:52)
[2019-03-03] MEDS: diltiazem CD 120mg capsule (once-daily) PO SCH (07:50)
[2019-03-03] MEDS: tamsulosin 0.4mg capsule PO SCH (07:50)
[2019-03-03] MEDS: FLUoxetine 20mg capsule PO SCH (07:50)
[2019-03-03] MEDS: amLODIPine 5mg tablet PO SCH (07:50)
[2019-03-03] MEDS: acetaminophen 325mg tablet PO PRN ×2 (07:51→16:30)
[2019-03-03] MEDS: budesonide 0.5mg/2ml UD nebule IH SCH ×2 (07:53→20:48)
[2019-03-03 11:00] VITALS: BP 114/66
--- NOTE | 2019-03-03 11:34 | NUR ---
PAGER ID: [phone] MESSAGE: RE: Harshal Miramontes, Room: [facility]. Can I put K and Mag protocol replacement orders in for Pt. Morning K of 3.4 [facility] #[id number] Dr. Saldana paged concerning electrolyte replacement protocol for Pt.
[2019-03-03 15:00] VITALS: BP 117/63
--- NOTE | 2019-03-03 18:00 | NUR ---
Problems reprioritized. Patient report given, questions answered & plan of care reviewed with Sarah CARDENAS.
--- NOTE | 2019-03-03 18:28 | NUR ---
Patient in room PCU 3012. I have received report from Ryan CARDENAS and had the opportunity to ask questions and assume patient care. Patient is resting in bed. O2 sat 93%, will continue to monitor.
[2019-03-03 19:00] VITALS: BP 146/83
[2019-03-03] MEDS: furosemide 20 MG/2 ML vial IV SCH (19:52)
[2019-03-03] MEDS: atorvastatin 20mg tablet PO SCH (20:00)
[2019-03-03 23:00] VITALS: BP 105/48
[2019-03-04 03:00] VITALS: BP 100/50
[2019-03-04] MEDS: acetaminophen 325mg tablet PO PRN (03:35)
[2019-03-04] MEDS: albuterol 2.5 MG/3 ML nebule NEB SCH ×2 (03:39→08:53)
[2019-03-04 05:23] LABS: ALBUMIN 2.8 G/DL (3.4-5.0); ANION GAP 6 (8-16); BASOPHILS % (AUTO) 0 % (0-1); BLOOD UREA NITROGEN 43 MG/DL (7-18); BUN/CREATININE RATIO 33.6 (5.4-32.0); CALCIUM 8.7 MG/DL (8.5-10.1); CHLORIDE 97 MMOL/L (99-107); CREATININE 1.28 MG/DL (0.60-1.10); EOSINOPHILS % (AUTO) 0 % (0-6); GLUCOSE 146 MG/DL (70-104); HEMATOCRIT 28.9 % (42.0-52.0); HEMOGLOBIN 9.6 g/dl (14.0-17.9); LYMPHOCYTES # (AUTO) 0.3 X10'3 (1.1-4.8); LYMPHOCYTES % (AUTO) 2.4 % (21-51); MEAN CORPUSCULAR HEMOGLOBIN 29.6 PG (27.0-31.0); MEAN CORPUSCULAR HGB CONC 33.2 g/dL (33.0-36.5); MEAN CORPUSCULAR VOLUME 89.3 FL (78-98); MEAN PLATELET VOLUME 9.4 FL (7.4-10.4); MONOCYTES # (AUTO) 0.4 X10'3 (0-0.9); MONOCYTES % (AUTO) 2.9 % (2-12); NEUTROPHILS # (AUTO) 12.8 X10'3 (1.8-7.7); NEUTROPHILS % (AUTO) 94.7 % (42-75); PLATELET COUNT 192 X10'3 (140-440); POTASSIUM 3.7 MMOL/L (3.5-5.1); RED BLOOD COUNT 3.24 X10'6 (4.70-6.10); SODIUM 136 MMOL/L (135-145); TOTAL CARBON DIOXIDE 33.1 MMOL/L (24-32); WHITE BLOOD COUNT 13.6 X10'3 (4.5-11.0); eGFR 54 ML/MIN
[2019-03-04 06:00] VITALS: BP 114/71
--- NOTE | 2019-03-04 06:00 | NUR ---
Patient in room PCU 3012. I have received report from Sarah CARDENAS and had the opportunity to ask questions and assume patient care.
--- NOTE | 2019-03-04 06:24 | NUR ---
Problems reprioritized. Patient report given, questions answered & plan of care reviewed with Deonna CARDENAS.
[2019-03-04] MEDS: FLUoxetine 20mg capsule PO SCH (08:15)
[2019-03-04] MEDS: apixaban 5mg tablet PO SCH (08:15)
[2019-03-04] MEDS: pantoprazole 40mg Tablet.DR PO SCH (08:15)
[2019-03-04] MEDS: tamsulosin 0.4mg capsule PO SCH (08:15)
[2019-03-04] MEDS: diltiazem CD 120mg capsule (once-daily) PO SCH (08:16)
[2019-03-04] MEDS: lactobacillus rhamnosus 10,000 MMU CELLS/CAPSULE PO SCH (08:16)
[2019-03-04] MEDS: carvedilol 6.25mg tablet PO SCH (08:16)
[2019-03-04] MEDS: furosemide 20 MG/2 ML vial IV SCH (08:17)
[2019-03-04] MEDS: amLODIPine 5mg tablet PO SCH (08:17)
[2019-03-04] MEDS: methylPREDNISolone sod succ 125mg/2ml vial IV SCH (08:18)
[2019-03-04] MEDS: levoFLOXACIN-Levaquin 250mg/D5 50 ML IV SCH (08:20)
[2019-03-04] MEDS: budesonide 0.5mg/2ml UD nebule IH SCH (08:53)
[2019-03-04] MEDS ORDERED: LEVO500T2 PO (08:58)
--- NOTE | 2019-03-04 14:15 | NUR ---
Patient discharged stable to home. Discharge instructions given to patient verbally and written. Patient verbalized understanding. Prescription filled at bedside by [facility]. Peripheral IV removed, canula intact. Tele monitor equipment removed. All personal belongings returned to patient. Patient wheeled out to lobby via w/c by staff to be picked up by [email or web address]. Patient left using oxygen from personal portable O2 tank.
== END 2019-03-04 14:15 | disposition home or self-care (01) | DRG 291 ==
LOC: ER 04:25 → PCU 3S 10:57 → CMPBEDREQ 19:35
PROVIDERS: ADMIT Family Medicine; ATTEND Internal Medicine
PROC: 5A09457 Assistance with Respiratory Ventilation, 24-96 Consecutive Hours, Continuous Positive Airway Pressure (ICD-10-PCS; principal; 2019-03-01)
DX: I13.0 Hypertensive heart and chronic kidney disease with heart failure and stage 1 through stage 4 chronic kidney disease, or unspecified chronic kidney disease (principal); J18.9 Pneumonia, unspecified organism; I50.23 Acute on chronic systolic (congestive) heart failure; J96.21 Acute and chronic respiratory failure with hypoxia; J44.1 Chronic obstructive pulmonary disease with (acute) exacerbation; J44.0 Chronic obstructive pulmonary disease with (acute) lower respiratory infection; N18.3 Chronic kidney disease, stage 3 (moderate); I25.10 Atherosclerotic heart disease of native coronary artery without angina pectoris; I48.0 Paroxysmal atrial fibrillation; Z79.01 Long term (current) use of anticoagulants; Z79.899 Other long term (current) drug therapy; Z95.1 Presence of aortocoronary bypass graft; Z99.81 Dependence on supplemental oxygen; Z87.891 Personal history of nicotine dependence; Z88.0 Allergy status to penicillin
CPT/HCPCS: 36415; 36600; 71045; 80048; 80053; 82803; 83605; 83880; 84484; 85018; 85025; 87040; 87081; 93005; 94640; 94660; 94760; 96365; 96366; 96375; 99285; G0378; J1940; J1956; J2930; J7626

== ENCOUNTER 2019-09-26 22:55 | Inpatient (IN) | payer MEDICARE, MEDICAID ==
[~2019-09-26] VITALS: Ht 182.9 cm; Wt 68.2 kg
[~2019-09-26 22:55] MED LIST changes: +ADV50100 INH; -ADVAIR DISKU; +ALBU18HF2 INH; +AMLO10TA13 PO; -ATORVASTATIN 80 MG; -CARCD120C PO; -CARTIA XT; -CARVEDILOL 6.25 MG; +CLON0.5T4 PO; -CLONAZEPAM TAB 1MG; +DILT120C51 PO; -ELIQUIS TAB 5MG; +FLO0.4C PO; -FLUOXETINE CAP 20MG; +FLUT16SP26 NAS; -FLUTICASONE SPR 50MCG; -FURO-150 PO; +FURO20TA4 PO; -FUROSEMIDE TAB 20MG; -PANTOPRAZOLE TAB 40MG; -TAMSULOSIN CAP 0.4MG; -VENTOLIN HFA AER; -ZOLPIDEM 5 MG
[2019-09-26] MEDS ORDERED: ipratropium/albuterol 3ml nebule NEB ONE (23:05)
[2019-09-26] MEDS ORDERED: CefTRIAXone 2gm/D5W 50ml 50 ML IV ONE (23:05)
[2019-09-26] MEDS ORDERED: methylPREDNISolone sod succ 125mg/2ml vial IV ONE (23:05)
[2019-09-26] MEDS ORDERED: furosemide 40mg/4ml inj IV ONE (23:05)
[2019-09-26 23:38] LABS: BASOPHILS # (AUTO) 0.1 X10'3 (0-0.2); EOSINOPHILS # (AUTO) 0.2 X10'3 (0-0.9); LYMPHOCYTES # (AUTO) 0.9 X10'3 (1.1-4.8); LYMPHOCYTES % (AUTO) 9.6 % (21-51); NEUTROPHILS % (AUTO) 80.1 % (42-75)
[2019-09-26 23:40] LABS: BASOPHILS % (AUTO) 0.6 % (0-1); EOSINOPHILS % (AUTO) 2.6 % (0-6); HEMATOCRIT 30.6 % (42.0-52.0); HEMOGLOBIN 10.2 g/dl (14.0-17.9); MEAN CORPUSCULAR HEMOGLOBIN 29.8 PG (27.0-31.0); MEAN CORPUSCULAR HGB CONC 33.5 g/dL (33.0-36.5); MEAN PLATELET VOLUME 10.4 FL (7.4-10.4); MONOCYTES # (AUTO) 0.7 X10'3 (0-0.9); MONOCYTES % (AUTO) 7.1 % (2-12); NEUTROPHILS # (AUTO) 7.6 X10'3 (1.8-7.7); PLATELET COUNT 143 X10'3 (140-440); RED BLOOD COUNT 3.43 X10'6 (4.70-6.10); WHITE BLOOD COUNT 9.5 X10'3 (4.5-11.0)
[2019-09-26 23:41] LABS: ABG BASE EXCESS 6.7 mmol/L (-2.0-3.0); ABG HCO3 33.3 mmol/L (22.0-26.0); ABG PCO2 (T) 58.1 mmHg (35.0-45.0); ABG PH (T) 7.375 (7.350-7.450); ABG PO2 (T) 74.6 mmHg (83-108); ALLEN'S TEST POSITIVE; FCOHb 0.6 % (0.5-1.5); FLOW 12 L/min; FMetHb 0.1 % (0.3-1.12); FO2Hb 93.3 % (94-100); PATIENT TEMPERATURE 36.8; TOTAL HEMOGLOBIN 10.3 G/dl (14.0-17.9)
[2019-09-27] VITALS (7 sets, daily range): BP systolic 100–143; BP diastolic 42–72
[2019-09-27 00:02] LABS: ALANINE AMINOTRANSFERASE 11 U/L (12-78); ALBUMIN 3.4 G/DL (3.4-5.0); ALBUMIN/GLOBULIN RATIO 0.9 (1.1-1.5); ALKALINE PHOSPHATASE 127 IU/L (46-116); ANION GAP 4 (8-16); ASPARTATE AMINO TRANSFERASE 18 U/L (10-37); BILIRUBIN,TOTAL 0.5 MG/DL (0.1-1.0); BLOOD UREA NITROGEN 17 MG/DL (7-18); BUN/CREATININE RATIO 14.3 (5.4-32.0); CALCIUM 8.6 MG/DL (8.5-10.1); CHLORIDE 103 MMOL/L (99-107); CREATININE 1.19 MG/DL (0.60-1.10); GLUCOSE 117 MG/DL (70-104); POTASSIUM 3.2 MMOL/L (3.5-5.1); SODIUM 142 MMOL/L (135-145); TOTAL CARBON DIOXIDE 35.3 MMOL/L (24-32); TOTAL PROTEIN 7.4 G/DL (6.4-8.2); eGFR 59 ML/MIN
[2019-09-27 00:35] LABS: CLARITY,URINE CLEAR (Clear); COLOR,URINE YELLOW (Yellow); GLUCOSE, URINE NEGATIVE (Neg); KETONES,URINE NEGATIVE (Neg); LEUKOCYTE ESTERASE ,URINE NEGATIVE (Neg); NITRITES, URINE NEGATIVE (Neg); OCCULT BLOOD,URINE NEGATIVE (Neg); PROTEIN,URINE NEGATIVE (Neg); UA COLLECTION TYPE URINAL; UROBILINOGEN,URINE 0.2 E.U/dL (0.2-1.0)
[2019-09-27] MEDS ORDERED: ipratropium/albuterol 3ml nebule NEB PRN ×3 (01:40→13:55)
[2019-09-27] MEDS ORDERED: potassium CL 10mEq/100ml bag 100 ML IV PRN ×2 (01:40)
[2019-09-27] MEDS ORDERED: clonazePAM 0.5mg tablet PO PRN (01:40)
[2019-09-27] MEDS ORDERED: acetaminophen 325mg tablet PO PRN (01:40)
[2019-09-27] MEDS ORDERED: magnesium 4gm in 100ml NS 100 ML IV PRN (01:40)
[2019-09-27] MEDS ORDERED: ondansetron/PF 4mg/2ml inj IV PRN (01:40)
[2019-09-27] MEDS ORDERED: magnesium Cl slow-release 64mg tablet PO PRN (01:40)
[2019-09-27] MEDS ORDERED: potassium Cl 20 mEq SR tablet PO PRN (01:40)
[2019-09-27] MEDS ORDERED: magnesium 2GM in 50ml NS 50 ML IV PRN (01:40)
--- NOTE | 2019-09-27 02:58 | NUR ---
Patient in room ED 4. I have received report from Damaris CARDENAS and had the opportunity to ask questions and awaiting for arrival of patient to the PCU unit.
--- NOTE | 2019-09-27 03:15 | NUR ---
Patient arrived from the ED at this time. He is alert and oriented and able to make his needs known. He is on 10 liters non-rebreather and sating at 89%. Vitals are stable. He denies any pain. He was transferred from [facility] to the bed with a slideboard. All safety precautions are in place. Call light within reach. Will continue to monitor.
[2019-09-27] MEDS: potassium Cl 20 mEq SR tablet PO PRN ×4 (03:26→20:47)
[2019-09-27] MEDS: albuterol 2.5 MG/3 ML nebule NEB SCH ×4 (04:36→21:53)
--- NOTE | 2019-09-27 06:06 | NUR ---
Problems reprioritized. Patient report given, questions answered & plan of care reviewed with Brenda CARDENAS.
--- NOTE | 2019-09-27 06:32 | NUR ---
Patient in room PCU 3012A. I have received report from Mariya CARDENAS and had the opportunity to ask questions and assume patient care.
[2019-09-27] MEDS ORDERED: methylPREDNISolone sod succ/PF 40mg inj. IV SCH (08:00)
[2019-09-27] MEDS ORDERED: furosemide 20MG tablet PO SCH (08:00)
[2019-09-27] MEDS: enoxaparin 40mg/0.4ml syringe SUBCUT SCH (08:09)
[2019-09-27] MEDS: levoFLOXACIN-Levaquin 500mg/D5 100 ML IV SCH (08:09)
[2019-09-27] MEDS: pantoprazole 40mg Tablet.DR PO SCH (08:10)
[2019-09-27] MEDS: FLUoxetine 20mg capsule PO SCH (08:11)
[2019-09-27] MEDS: tamsulosin 0.4mg capsule PO SCH (08:11)
[2019-09-27] MEDS: carvedilol 6.25mg tablet PO SCH ×2 (08:11→20:24)
[2019-09-27] MEDS: amLODIPine 5mg tablet PO SCH (08:11)
[2019-09-27] MEDS: K and/or MAG REPLACEMENT MC SCH ×2 (08:12→20:48)
[2019-09-27] MEDS: diltiazem CD 120mg capsule (once-daily) PO SCH (08:12)
[2019-09-27] MEDS: apixaban 5mg tablet PO SCH ×2 (08:12→20:24)
[2019-09-27] MEDS: budesonide 0.5mg/2ml UD nebule IH SCH ×2 (09:44→21:53)
--- NOTE | 2019-09-27 10:24 | NUR ---
paged RT RE Judith Miramontes. [id number]. FYI new STAT ABG order
[2019-09-27 10:56] LABS: ABG BASE EXCESS 5.8 mmol/L (-2.0-3.0); ABG HCO3 30.9 mmol/L (22.0-26.0); ABG OXYGEN SATURATION 92.5 % (95-98); ABG PCO2 (T) 47.5 mmHg (35.0-45.0); ABG PH (T) 7.431 (7.350-7.450); ABG PO2 (T) 63.7 mmHg (83-108); ALLEN'S TEST POSITIVE; FCOHb 0.3 % (0.5-1.5); FLOW 13 L/min; FMetHb 0.1 % (0.3-1.12); FO2Hb 92.1 % (94-100); TOTAL HEMOGLOBIN 10.6 G/dl (14.0-17.9)
--- NOTE | 2019-09-27 11:02 | NUR ---
Paged MESSAGE: Brenda gandhi [phone]. RE Wong Miramontes [id number]. LILLIAMI that ABG has resulted
--- NOTE | 2019-09-27 12:10 | NUR ---
Paged PAGER ID: [phone] MESSAGE: Brenda gandhi [phone]. RE Wong Miramontes 3012A. Can I place an order for tylenol for pain? Thank you
[2019-09-27] MEDS: acetaminophen 325mg tablet PO PRN (12:34)
--- NOTE | 2019-09-27 18:29 | NUR ---
Problems reprioritized. Patient report given, questions answered & plan of care reviewed with Litzy CARDENAS.
[2019-09-27] MEDS: furosemide 20 MG/2 ML vial IV SCH (20:23)
[2019-09-27] MEDS: methylPREDNISolone sod succ/PF 40mg inj. IV SCH (20:23)
[2019-09-27] MEDS: lactobacillus rhamnosus 10,000 MMU CELLS/CAPSULE PO SCH (20:24)
[2019-09-27] MEDS ORDERED: atorvastatin 20mg tablet PO SCH (21:00)
[2019-09-28 02:00] VITALS: BP 96/63
[2019-09-28] MEDS: albuterol 2.5 MG/3 ML nebule NEB SCH ×2 (03:12→07:37)
[2019-09-28] MEDS: acetaminophen 325mg tablet PO PRN (04:52)
[2019-09-28 05:28] LABS: ANION GAP 4 (8-16); BLOOD UREA NITROGEN 25 MG/DL (7-18); BUN/CREATININE RATIO 22.1 (5.4-32.0); CALCIUM 8.8 MG/DL (8.5-10.1); CHLORIDE 104 MMOL/L (99-107); CREATININE 1.13 MG/DL (0.60-1.10); GLUCOSE 143 MG/DL (70-104); MAGNESIUM 1.6 MG/DL (1.5-2.4); POTASSIUM 4.2 MMOL/L (3.5-5.1); SODIUM 143 MMOL/L (135-145); TOTAL CARBON DIOXIDE 34.6 MMOL/L (24-32); eGFR 63 ML/MIN
[2019-09-28 05:45] LABS: BASOPHILS % (AUTO) 0.1 % (0-1); EOSINOPHILS % (AUTO) 0 % (0-6); HEMATOCRIT 28.7 % (42.0-52.0); HEMOGLOBIN 9.4 g/dl (14.0-17.9); LYMPHOCYTES # (AUTO) 0.5 X10'3 (1.1-4.8); LYMPHOCYTES % (AUTO) 4.8 % (21-51); MEAN CORPUSCULAR HEMOGLOBIN 28.8 PG (27.0-31.0); MEAN CORPUSCULAR HGB CONC 32.8 g/dL (33.0-36.5); MEAN CORPUSCULAR VOLUME 87.6 FL (78-98); MEAN PLATELET VOLUME 11.1 FL (7.4-10.4); MONOCYTES # (AUTO) 0.4 X10'3 (0-0.9); MONOCYTES % (AUTO) 3.3 % (2-12); NEUTROPHILS # (AUTO) 10.4 X10'3 (1.8-7.7); NEUTROPHILS % (AUTO) 91.8 % (42-75); PLATELET COUNT 131 X10'3 (140-440); RED BLOOD COUNT 3.27 X10'6 (4.70-6.10); RED CELL DISTRIBUTION WIDTH 16.4 % (11.5-14.5); WHITE BLOOD COUNT 11.3 X10'3 (4.5-11.0)
--- NOTE | 2019-09-28 06:14 | NUR ---
Problems reprioritized. Patient report given, questions answered & plan of care reviewed with THERESA Holloway.
[2019-09-28 06:58] VITALS: BP 116/71
[2019-09-28] MEDS: budesonide 0.5mg/2ml UD nebule IH SCH (07:37)
[2019-09-28] MEDS: levoFLOXACIN-Levaquin 500mg/D5 100 ML IV SCH (07:43)
[2019-09-28] MEDS: enoxaparin 40mg/0.4ml syringe SUBCUT SCH (07:43)
[2019-09-28] MEDS: FLUoxetine 20mg capsule PO SCH (07:44)
[2019-09-28] MEDS: lactobacillus rhamnosus 10,000 MMU CELLS/CAPSULE PO SCH (07:44)
[2019-09-28] MEDS: tamsulosin 0.4mg capsule PO SCH (07:44)
[2019-09-28] MEDS: carvedilol 6.25mg tablet PO SCH (07:44)
[2019-09-28] MEDS: apixaban 5mg tablet PO SCH (07:44)
[2019-09-28] MEDS: amLODIPine 5mg tablet PO SCH (07:44)
[2019-09-28] MEDS: pantoprazole 40mg Tablet.DR PO SCH (07:45)
[2019-09-28] MEDS: diltiazem CD 120mg capsule (once-daily) PO SCH (07:45)
[2019-09-28] MEDS: methylPREDNISolone sod succ/PF 40mg inj. IV SCH (07:45)
[2019-09-28] MEDS: furosemide 20 MG/2 ML vial IV SCH (07:45)
[2019-09-28] MEDS: K and/or MAG REPLACEMENT MC SCH (08:00)
[2019-09-28 10:16] LABS: LARGE PLATELETS FEW; PLATELET ESTIMATE DECREASED
[2019-09-28] MEDS ORDERED: LEVO500T2 PO (12:02)
[2019-09-28] MEDS ORDERED: FURO20TA4 PO (12:02)
[2019-09-28] MEDS ORDERED: PRED20TA PO (12:02)
--- NOTE | 2019-09-28 13:15 | NUR ---
Patient stable for discharge per MD. Patient education given to patient. All questions and concerns addressed. New medications sent to [facility] in [place]. PIV d/c'd catheter intact. Tele monitor removed and returned to [email or web address]. Yellow cab called for patient for ride home. patient transported off unit via wheel chair to lobby to wait for cab.
== END 2019-09-28 13:15 | disposition home or self-care (01) | DRG 291 ==
LOC: ER 22:56 → ED HOLD 09-27 01:39 → UNDOADMIN 09-27 02:09 → ED HOLD 09-27 02:09 → PCU 3S 09-27 03:30
PROVIDERS: ADMIT Internal Medicine; ATTEND Family Medicine
DX: I13.0 Hypertensive heart and chronic kidney disease with heart failure and stage 1 through stage 4 chronic kidney disease, or unspecified chronic kidney disease (principal); I50.23 Acute on chronic systolic (congestive) heart failure; J18.9 Pneumonia, unspecified organism; J96.21 Acute and chronic respiratory failure with hypoxia; J96.22 Acute and chronic respiratory failure with hypercapnia; J44.1 Chronic obstructive pulmonary disease with (acute) exacerbation; I48.20 Chronic atrial fibrillation, unspecified; J44.0 Chronic obstructive pulmonary disease with (acute) lower respiratory infection; D64.9 Anemia, unspecified; F17.210 Nicotine dependence, cigarettes, uncomplicated; F32.9 Major depressive disorder, single episode, unspecified; K21.9 Gastro-esophageal reflux disease without esophagitis; I25.10 Atherosclerotic heart disease of native coronary artery without angina pectoris; I27.21 Secondary pulmonary arterial hypertension; N18.9 Chronic kidney disease, unspecified; N40.0 Benign prostatic hyperplasia without lower urinary tract symptoms; Z79.01 Long term (current) use of anticoagulants; Z79.51 Long term (current) use of inhaled steroids; Z95.1 Presence of aortocoronary bypass graft; Z99.81 Dependence on supplemental oxygen; Z88.0 Allergy status to penicillin; Z79.899 Other long term (current) drug therapy
CPT/HCPCS: 36415; 36600; 71045; 80048; 80053; 81003; 82803; 83605; 83735; 83880; 84145; 84484; 85018; 85025; 87040; 87081; 87502; 87503; 93005; 93306; 94640; 94760; 96365; 96375; 97116; 97161; 97530; 99285; G0378; J0696; J1650; J1940; J1956; J2920; J2930; J7626